=== PATIENT | male | born 1940 | race Native Hawaiian/Other Pacific Islander ===

== ENCOUNTER 2018-06-12 10:18 | Emergency (ER) | payer MEDICARE, OTHER ==
[~2018-06-12] VITALS: Ht 165.1 cm; Wt 70.9 kg
[~2018-06-12 10:18] MED LIST: CALC500T62 PO; ESOM40CA PO; EZET10 PO; FEBU40T PO; FEXO180T94 PO; FLUC100T PO; MONT10TA21 PO; PRAV40TA4 PO; TAMS0.4C32 PO; TELM40 PO; TIOT185 IH; XUD NEB
[2018-06-12] MEDS ORDERED: ACLI400A2 IH (10:36)
[2018-06-12] MEDS ORDERED: FLUN25H NASAL (10:36)
[2018-06-12] MEDS ORDERED: FINA5TAB41 PO (10:36)
[2018-06-12] MEDS ORDERED: TELM40 PO (10:36)
[2018-06-12] MEDS ORDERED: ALBU8.5H8 IH (10:36)
[2018-06-12] MEDS ORDERED: AZEL137S8 NASAL (10:36)
[2018-06-12] MEDS ORDERED: GABA-531 PO (10:36)
[2018-06-12] MEDS ORDERED: BUDE10.2 IH (10:36)
[2018-06-12] MEDS ORDERED: ASPI81 PO (10:36)
[2018-06-12] MEDS ORDERED: SIMV-260 PO (10:36)
[2018-06-12] MEDS ORDERED: [UNRECOGNIZED DRUG - OTHER] SL (10:36)
[2018-06-12] MEDS ORDERED: LEVO500 PO (10:36)
[2018-06-12] MEDS ORDERED: CARV6 PO (10:36)
[2018-06-12] MEDS ORDERED: CEFTAROLINE 600 MG/D5W 250 ML IV ONE (10:45)
[2018-06-12] MEDS ORDERED: NITR12SP4 TL (10:53)
[2018-06-12 10:56] LABS: BASOPHILS % (AUTO) 1.4 % (0.0-2.0); EOSINOPHILS % (AUTO) 3.8 % (1.0-6.0); HEMOGLOBIN 13.7 g/dL (13.5-17.5); LYMPHOCYTES # (AUTO) 2.3 K/uL (1.0-4.8); LYMPHOCYTES % (AUTO) 33.2 % (22.0-44.0); MEAN CORPUSCULAR HEMOGLOBIN 33.8 pg (26.0-34.0); MEAN CORPUSCULAR HGB CONC 34.2 G/dL (31.0-37.0); MEAN CORPUSCULAR VOLUME 99 fL (80-100); MONOCYTES # (AUTO) 1.1 K/uL (0.1-1.0); MONOCYTES % (AUTO) 15.6 % (2.0-9.0); NEUTROPHILS # (AUTO) 3.2 K/uL (1.8-7.7); PLATELET COUNT (AUTO) 290 K/uL (150-450); RED BLOOD CELL COUNT(AUTO) 4.04 MIL/uL (4.50-5.90); RED CELL DISTRIBUTION WIDTH 12.5 % (11.5-14.5)
[2018-06-12] MEDS ORDERED: IOVERSOL 350 MG/ML 100 ML VIAL ONE (11:01)
[2018-06-12] MEDS ORDERED: SODIUM CHLORIDE 0.9% 100 ML ONE (11:01)
[2018-06-12 11:05] LABS: ANION GAP 8 mmol/L (8-16); CALCIUM, TOTAL 8.5 mg/dL (8.8-10.5); CARBON DIOXIDE 26 mmol/L (22-29); CHLORIDE 100 mmol/L (98-107); GLUCOSE,RANDOM 120 mg/dL (70-110); SODIUM SERUM 134 mmol/L (136-145); UREA NITROGEN, BLOOD 16 mg/dL (7-18)
[2018-06-12 11:06] LABS: GLOMERULAR FILTR. RATE CALC > 60 mL/min (>60)
[2018-06-12 11:11] LABS: ALANINE AMINOTRANSFERASE 66 U/L (12-78); ALBUMIN 3.4 g/dL (3.4-5.0); ALKALINE PHOSPHATASE 79 U/L (46-116); ASPARTATE AMINOTRANSFERASE 44 U/L (15-37); BILIRUBIN,TOTAL 0.6 mg/dL (0.1-1.0)
[2018-06-12 14:33] VITALS: BP 147/61
== END 2018-06-12 15:01 | disposition home or self-care (01) ==
LOC: EMS 10:19
DX: N49.2 Inflammatory disorders of scrotum (principal); J44.9 Chronic obstructive pulmonary disease, unspecified; E78.00 Pure hypercholesterolemia, unspecified; I10 Essential (primary) hypertension; Z91.013 Allergy to seafood; Z79.82 Long term (current) use of aspirin; Z79.899 Other long term (current) drug therapy
CPT/HCPCS: 36415; 71045; 74177; 80053; 85025; 93005; 96365; 99285; J0712; J7050; Q9967